=== PATIENT | male | born 1975 | race Caucasian/White ===

== ENCOUNTER 2019-12-08 18:48 | Emergency (ER) | payer MEDICAID ==
[~2019-12-08] VITALS: Ht 167.6 cm; Wt 77.1 kg
[2019-12-08 19:00] VITALS: BP 148/86
--- NOTE | 2019-12-08 19:48 | NUR ---
AMBULATES TO BED 03 WITH UPRIGHT, STEADY GAIT. HOLDING COMPRESS TO LEFT EYE. BLEEDING CONTROLLED.
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
--- NOTE | 2019-12-08 20:40 | NUR ---
PT LAC CLEANED WITH NORMAL SALINE AND 4X4 GUAZE PADS
[2019-12-08] MEDS ORDERED: LIDOCAINE MPF 1% 10 MG/ML VIAL INJ ONE (20:55)
--- NOTE | 2019-12-08 20:59 | NUR ---
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 SHE STATED SHE WAS GOING TO PUT IN A CALL FOR SERVICE.
[2019-12-08] MEDS ORDERED: ceFAZolin 1,000 MG VIAL ONE (22:04)
--- NOTE | 2019-12-08 22:47 | NUR ---
PT moved to Chair D. Officer capri of [facility] at chairside.
[2019-12-08 23:53] LABS: BASOPHILS # (AUTO) 0.1 K/uL (0.00-0.22); BASOPHILS % (AUTO) 0.5 % (0.0-2.0); EOSINOPHILS # (AUTO) 0.4 K/uL (0-0.4); EOSINOPHILS % (AUTO) 2.2 % (0.0-4.0); HEMATOCRIT 45.4 % (36-52); HEMOGLOBIN 15.4 g/dL (12.0-18.0); LYMPHOCYTES # (AUTO) 1.9 K/uL (2.0-11.5); LYMPHOCYTES % (AUTO) 11.9 % (20.5-51.1); MEAN CORPUSCULAR HEMOGLOBIN 31 pg (27-31); MEAN CORPUSCULAR HGB CONC 34 g/dL (33-37); MEAN CORPUSCULAR VOLUME 92.4 fL (80-94); NEUTROPHILS # (AUTO) 12.7 K/uL (1.8-7.7); PLATELET COUNT (AUTO) 315 K/uL (140-450); RED BLOOD CELL COUNT(AUTO) 4.91 MIL/uL (4.20-6.10); RED CELL DISTRIBUTION WIDTH 14.4 % (11.6-13.7); WHITE BLOOD COUNT (AUTO) 16.1 K/uL (4.8-10.8)
[2019-12-09 00:04] LABS: ANION GAP 17.3 (8-16); CARBON DIOXIDE 25.1 mmol/L (21-32); CREATININE 0.7 mg/dL (0.7-1.3); POTASSIUM 3.4 mmol/L (3.5-5.1)
[2019-12-09 00:09] LABS: NEUTROPHILS % (AUTO) 79.4 % (42.2-75.2)
[2019-12-09 00:10] LABS: ALBUMIN 4.2 g/dL (3.4-5.0); TOTAL BILIRUBIN 0.3 mg/dL (0.0-1.0)
--- NOTE | 2019-12-09 00:12 | NUR ---
TAKEN TO CT VIA WC.
--- NOTE | 2019-12-09 02:13 | NUR ---
MOVED TO ER BED 2
--- NOTE | 2019-12-09 02:36 | NUR ---
PT RESTING IN BED, AAOX4. PT STATES THAT HE DOES NOT NEED ANY PAIN MEDICATION, PAIN AT A TOLERABLE 5/10.
--- NOTE | 2019-12-09 02:43 | NUR ---
GAVE REPORT TO DORIS HA AT [facility].
[2019-12-09 03:55] VITALS: BP 114/69
--- NOTE | 2019-12-09 03:55 | NUR ---
Patient to be transferred to [facility] . Is being transferred due to . Receiving facility has accepting physician and available space. ER physician has signed transfer form. Patient or responsible republican has agreed to transfer and signed form. Patient belongings inventoried and will be sent with patient. Copy of nursing notes, lab reports, EKG, Physicians Orders and X-rays to be sent with patient. Report called to at receiving facility. ambulance service has been called for transfer. ETA is .
[2019-12-09] MEDS ORDERED: SODIUM CHLORIDE FLUSH 10 ML SYR IVF SCH (05:00)
== END 2019-12-09 03:55 | disposition short-term general hospital (02) ==
LOC: MED 18:48
DX: S02.842B Fracture of lateral orbital wall, left side, initial encounter for open fracture (principal); S02.40DB Maxillary fracture, left side, initial encounter for open fracture; S02.2XXB Fracture of nasal bones, initial encounter for open fracture; Y04.8XXA Assault by other bodily force, initial encounter; Y93.89 Activity, other specified; Y92.89 Other specified places as the place of occurrence of the external cause; Y99.8 Other external cause status
CPT/HCPCS: 36415; 70450; 70486; 80053; 85025; 90471; 90715; 96365; 99285; J0690; J2001